=== PATIENT | female | born 1965 | race Caucasian/White ===

== ENCOUNTER 2016-11-08 09:59 | Emergency (ER) | payer MEDICAID ==
[~2016-11-08] VITALS: Ht 162.6 cm; Wt 52.0 kg
[~2016-11-08 09:59] MED LIST: ALBEPOW6 XX; DOLU1TAB4 PO; DULO20 PO; GABA600T OR; HYDR-3533 PO; NAPR500T PO; PERM5CRE4 TOP; RISP3TAB23 PO; STRO3TAB PO
[2016-11-08 10:03] VITALS: BP 155/86; PULSE 82; RESP 24; TEMP 97.8; O2SAT 94
[2016-11-08] MEDS ORDERED: LISI10TA3 PO (10:24)
[2016-11-08] MEDS ORDERED: HYDR-3533 PO (10:24)
[2016-11-08] MEDS ORDERED: LURA20TA PO (10:24)
[2016-11-08] MEDS ORDERED: TRAZ100T4 PO (10:24)
[2016-11-08] MEDS ORDERED: TRAM50TA PO (10:24)
[2016-11-08 10:58] VITALS: O2SAT 98
[2016-11-08] MEDS ORDERED: SODIUM CHLORIDE 0.9% FLUSH 5 ML FLUSH IVF PRN (11:00)
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
[2016-11-08 11:13] LABS: AUTOMATED NEUTROPHIL # 2.2 TH/MM3 (1.8-7.7); BASOPHIL % 0.5 % (0.0-2.0); EOSINOPHIL # 0.1 TH/MM3 (0-0.4); EOSINOPHIL % 2.8 % (0.0-4.0); HEMATOCRIT 39.4 % (35.0-46.0); HEMO FLAGS DIFF FINAL; LYMPH % 34.7 % (9.0-44.0); LYMPHOCYTE # 1.4 TH/MM3 (1.0-4.8); MEAN CELL VOLUME 95.6 FL (80.0-100.0); MEAN CORPUSCULAR HEMOGLOBIN 31.5 PG (27.0-34.0); MONO % 8.6 % (0.0-8.0); NEUT % 53.4 % (16.0-70.0); PLATELET COUNT 118 TH/MM3 (150-450); RED BLOOD COUNT 4.12 MIL/MM3 (4.00-5.30); RED CELL DISTRIBUTION WIDTH 16.1 % (11.6-17.2); WHITE BLOOD COUNT 4.2 TH/MM3 (4.0-11.0)
[2016-11-08 11:23] LABS: ALT (GPT) 89 U/L (10-53); ANION GAP 8 MEQ/L (5-15); AST (GOT) 75 U/L (15-37); BICARBONATE 27.2 MEQ/L (21.0-32.0); BLOOD UREA NITROGEN 24 MG/DL (7-18); CHLORIDE 105 MEQ/L (98-107); GLOMERULAR FILTRATION RATE 66 ML/MIN (>89); POTASSIUM 3.9 MEQ/L (3.5-5.1); SODIUM (NA) 140 MEQ/L (136-145)
[2016-11-08 11:26] LABS: ALKALINE PHOSPHATASE 88 U/L (45-117); TOTAL BILIRUBIN ADULT 0.3 MG/DL (0.2-1.0)
--- NOTE | 2016-11-08 12:12 | RADRPT ---
EXAM DATE/TIME: 11/08/2016 11:14 [facility] COMPARISON: CHEST SINGLE AP, September 18, 2016, 20:05. INDICATIONS : Shortness of breath, anxiety, head pain, and neck pain. MEDICAL HISTORY : None. SURGICAL HISTORY : None. ENCOUNTER: Initial ACUITY: 1 month PAIN SCORE: 5/10 LOCATION: neck FINDINGS: Portable AP view of the chest demonstrates a normal-sized cardiac silhouette. No effusion, consolidat ion, or pneumothorax is visualized. The bones and soft tissues demonstrate no acute abnormality. CONCLUSION: No acute cardiopulmonary abnormality is identified. Kam Ko MD on November 08, 2016 at 12:10 Board Certified Radiologist. This report was verified electronically.
--- NOTE | 2016-11-08 12:30 | RADRPT ---
EXAM DATE/TIME: 11/08/2016 11:52 [facility] COMPARISON: CT BRAIN W/O CONTRAST, September 18, 2016, 19:14. INDICATIONS : Syncopal episode with fall. RADIATION DOSE: 49.08 CTDIvol (mGy) MEDICAL HISTORY : Hypertension. Chronic obstructive pulmonary disease. Cardiovascular diseaseHIV, Hepatits C, breast ca ncer. SURGICAL HISTORY : None. ENCOUNTER: Initial ACUITY: 1 day PAIN SCALE: 3/10 LOCATION: cranial TECHNIQUE: Multiple contiguous axial images were obtained of the head. Using automated exposure control and adj ustment of the mA and/or kV according to patient size, radiation dose was kept as low as reasonably a chievable to obtain optimal diagnostic quality images. FINDINGS: CEREBRUM: The ventricles are normal for age. No evidence of midline shift, mass lesion, hemorrhage or acute in farction. No extra-axial fluid collections are seen. POSTERIOR FOSSA: The cerebellum and brainstem are intact. The 4th ventricle is midline. The cerebellopontine angle i s unremarkable. EXTRACRANIAL: The visualized portion of the orbits is intact. SKULL: The calvaria is intact. No evidence of skull fracture. CONCLUSION: No acute intracranial abnormality is identified. Kam Ko MD on November 08, 2016 at 12:27 Board Certified Radiologist. This report was verified electronically.
--- NOTE | 2016-11-08 13:01 | RADRPT ---
EXAM DATE/TIME: 11/08/2016 11:52 [facility] COMPARISON: CT CERVICAL SPINE W/O CONTRAST, September 18, 2016, 19:14. INDICATIONS : Syncopal episode with fall, numbness and tingling in extremities bilaterally. RADIATION DOSE: 38.24 CTDIvol (mGy) MEDICAL HISTORY : Carcinoma, breast. Cardiovascular disease Chronic obstructive pulmonary disease. Hypertension, HIV, H epatitis. SURGICAL HISTORY : None. ENCOUNTER: Initial ACUITY: 1 day PAIN SCALE: 4/10 LOCATION: neck TECHNIQUE: Volumetric scanning of the cervical spine was performed. Multiplanar reconstructions in the sagittal, coronal and oblique axial planes were performed. Using automated exposure control and adjustment o f the mA and/or kV according to patient size, radiation dose was kept as low as reasonably achievable to obtain optimal diagnostic quality images. FINDINGS: VERTEBRAE: Normal vertebral body height. No fracture is visualized. ALIGNMENT: No anterolisthesis or retrolisthesis. Craniocervical junction and C1-C2 level demonstrate no abnormality. C2-C3: No disc herniation, canal stenosis, or neural foraminal stenosis. C3-C4: No disc herniation, canal stenosis, or neural foraminal stenosis. C4-C5: No disc herniation, canal stenosis, or neural foraminal stenosis. C5-C6: There is mild right facet arthrosis. Otherwise, no disc herniation, canal stenosis, or neural foramin al stenosis. C6-C7: No disc herniation, canal stenosis, or neural foraminal stenosis. C7-T1: There is mild facet arthrosis. No disc herniation, canal stenosis, or neural foraminal stenosis is pr esent. Visualized paraspinous structures demonstrate no acute finding. CONCLUSION: No acute cervical spine abnormality is identified and no significant degenerative changes are visuali zed. Kam Ko MD on November 08, 2016 at 12:55 Board Certified Radiologist. This report was verified electronically.
--- NOTE | 2016-11-10 21:40 | EKG ---
Date Performed: 11/08/2016 Time Performed: 12:00:57 PTAGE: 51 years EKG: Sinus rhythm NORMAL ECG PREVIOUS TRACING : 10/31/2015 07.04 Compared to prior tracing no significant change DOCTOR: Aden Montanez Interpretating Date/Time 11/10/2016 21:40:10
[2017-02-26] MEDS ORDERED: LURA80 PO (08:43)
[2017-02-26] MEDS ORDERED: BUSP15TA PO (08:43)
[2017-02-26] MEDS ORDERED: GABA800T PO (08:45)
[2017-02-26] MEDS ORDERED: ABAC1TAB3 PO (08:45)
[2017-03-30] MEDS ORDERED: TRAZ100T6 PO (08:16)
== END 2016-11-08 14:06 | disposition home or self-care (01) ==
LOC: NEPE 09:59
DX: R53.1 Weakness (principal); R55 Syncope and collapse; I10 Essential (primary) hypertension; F17.210 Nicotine dependence, cigarettes, uncomplicated; Z88.0 Allergy status to penicillin
CPT/HCPCS: 70450; 71010; 72125; 80053; 85025; 93005

== ENCOUNTER 2017-05-14 10:08 | Emergency (ER) | payer MEDICAID ==
[~2017-05-14] VITALS: Ht 162.6 cm; Wt 51.5 kg
[~2017-05-14 10:08] MED LIST changes: +ABAC1TAB3 PO; -ALBEPOW6 XX; +BUSP15TA PO; -DOLU1TAB4 PO; -DULO20 PO; -GABA600T OR; +GABA800T PO; -HYDR-3533 PO; +LISI10TA3 PO; +LURA80 PO; -NAPR500T PO; -PERM5CRE4 TOP; -RISP3TAB23 PO; -STRO3TAB PO; +TRAM50TA PO; +TRAZ100T6 PO
[2017-05-14 10:10] VITALS: BP 122/79; PULSE 86; RESP 18; TEMP 98.8; O2SAT 96
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
[2017-05-14] MEDS ORDERED: TETANUS/DIPHTHERIA TOXOID ADULT 0.5 ML VIAL IM ONE (10:30)
[2017-05-14] MEDS ORDERED: CLIN1CAP5 PO (10:57)
[2017-05-14] MEDS ORDERED: DOXY100T PO (10:57)
[2017-05-14] MEDS ORDERED: IBUP800T23 PO (10:57)
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
[2017-05-21] MEDS ORDERED: ALBE200T PO (19:08)
== END 2017-05-14 12:33 | disposition home or self-care (01) ==
LOC: NEPK 10:08
DX: S69.91XA Unspecified injury of right wrist, hand and finger(s), initial encounter (principal); S61.451A Open bite of right hand, initial encounter; A49.01 Methicillin susceptible Staphylococcus aureus infection, unspecified site; D64.9 Anemia, unspecified; I10 Essential (primary) hypertension; Z21 Asymptomatic human immunodeficiency virus [HIV] infection status; F17.200 Nicotine dependence, unspecified, uncomplicated; W22.8XXA Striking against or struck by other objects, initial encounter; Z23 Encounter for immunization
CPT/HCPCS: 73130; 86403; 87070; 87186; 87205; 90471; 90714

== ENCOUNTER → 2017-11-15 | Emergency (ER) | payer MEDICAID ==
[~2017-11-15] VITALS: Ht 162.6 cm; Wt 55.0 kg
[~2017-11-15] MED LIST changes: +ALBE200T PO; +IBUP1TAB7 PO; +IVER5TAB PO; +PERM5CRE TOPICAL; -TRAM50TA PO; +TRAZ100T10 PO; -TRAZ100T6 PO
[2017-11-15 21:51] VITALS: BP 186/109; PULSE 93; RESP 14; TEMP 97.9; O2SAT 97
--- NOTE | 2017-11-16 00:03 | PD ---
HPI Chief Complaint: Skin Problem Time Seen by Provider: 23:51 Travel History International Travel<30 days: No Contact w/Intl Traveler<30days: No Traveled to known affect area: No History of Present Illness HPI 52-year-old white female presents to emergency department requesting treatment of possible scabies. She states that she has had this skin rash which she feels is scabies for 6 years. She has been seen by her primary care Dr. multiple occasions, her psychologist, rf technician and ERs. She just was treated twice with pyrethrin for possible scabies this week. She states that she also has had multiple antibiotics. She claims that she has mites in her skin and she continues to pick and scratch. She states the skin is very pruritic. She denies any fever or chills. No recent illness otherwise. History Past Medical Histgory Narrative Medical Hepatitis C, HIV, hypertension Tetanus Vaccination: < 5 Years Hx Cancer: Yes (breast) Social History Alcohol Use: Yes (OCC) Tobacco Use: Yes (5-6 CIGS DAILY) Allergies-Medications (Allergen,Severity, Reaction): Coded Allergies: penicillin G (Verified Allergy, Intermediate, nauseated with a certain PCN unsure which one, 11/15/17) Reported Meds & Prescriptions Reported Meds & Active Scripts Active Permethrin Topical 5% (Permethrin) 5% Cream 1 Applic TOPICAL ONCE Lisinopril 10 Mg Tab 10 Mg PO DAILY Albenza (Albendazole) 200 Mg Tab 400 Mg PO DAILY Ibuprofen 800 Mg Tab 800 Mg PO Q6HR PRN Reported Trazodone (Trazodone HCl) 100 Mg Tablet 100 Mg PO HS Gabapentin 800 Mg Tab 800 Mg PO TID Triumeq (Srqiozpu-Dfomdnforgat-Jzghastubh) 600-50-300 Mg Tab 1 Tab PO DAILY Hazardous agent; use appropriate precautions for handling & disposal. Buspirone (Buspirone HCl) 15 Mg Tab 15 Mg PO TID Latuda (Lurasidone) 80 Mg Tab 80 Mg PO DAILY Review of Systems General / Constitutional: No: Fever Eyes: No: Visual changes HENT: No: Headaches Cardiovascular: No: Chest Pain or Discomfort Respiratory: No: Shortness of Breath Gastrointestinal: No: Abdominal Pain Genitourinary: No: Dysuria Musculoskeletal: No: Pain Skin: Positive Rash, Positive Itching, Positive Lesions Neurologic: No: Weakness Psychiatric: No: Depression Endocrine: No: Polydipsia Hematologic/Lymphatic: No: Easy Bruising Physical Exam Narrative GENERAL: Well-developed, well-nourished in no acute distress. Nontoxic appearing. HEAD: Normocephalic, atraumatic. EYES: Pupils equal round and reactive. Extraocular motions intact. No scleral icterus. No injection or drainage. ENT: TMs clear without erythema. The external auditory canals clear. Nose: clear . Posterior pharynx is pink and moist. No tonsillar edema or exudate. Uvula midline. Airway patent. NECK: Trachea midline.Supple, nontender, moves head freely. No central bony tenderness or spasm. CARDIOVASCULAR: Regular rate and rhythm without murmurs, gallops, or rubs. RESPIRATORY: Clear to auscultation. Breath sounds equal bilaterally. No wheezes , rales, or rhonchi. GASTROINTESTINAL: Abdomen soft, non-tender, nondistended. No hepato-splenomegaly , or palpable masses. No guarding. EXTREMITIES: No clubbing, cyanosis, or edema. No joint tenderness, effusion, or edema noted. BACK: Nontender without deformity or crepitance. No flank tenderness. Skin: Patient has multiple skull radiation which appear to be self-inflicted on her extremities and trunk. I see no evidence of any mites or skin infections. This is consistent with formication Data Data Last Documented VS Vital Signs Date Time Temp Pulse Resp B/P (MAP) Pulse Ox O2 Delivery O2 Flow Rate FiO2 11/15/17 21:51 97.9 93 14 186/109 (134) 97 Room Air MDM Medical Screen Exam Complete: Yes Emergency Medical Condition: No Differential Diagnosis MDM: High Differential diagnoses: Abscess, folliculitis, cellulitis, lymphangitis, abrasion, contact dermatitis, formication, scabies Narrative Course A medical screening exam was performed: At the time of evaluation the presenting medical condition was determined not to be of an emergent nature. The patient was given the option of receiving additional care, but declined. Patient was given options for additional community resources from which to obtain care. The Patient Has Been advised to seek medical attention for their presenting complaint. The patient has been advised to return to the ER at any time if an emergent condition develops. Primary Impression: Encounter for medical screening examination Condition: Michael Sparrow Nov 16, 2017 00:03
== END | disposition left against medical advice (07) ==
LOC: NEPD 21:50
DX: R21 Rash and other nonspecific skin eruption (principal); B20 Human immunodeficiency virus [HIV] disease; I10 Essential (primary) hypertension; B19.20 Unspecified viral hepatitis C without hepatic coma; F17.210 Nicotine dependence, cigarettes, uncomplicated; Z88.0 Allergy status to penicillin; Z79.899 Other long term (current) drug therapy
CPT/HCPCS: 99281

== ENCOUNTER 2018-03-08 11:56 | Emergency (ER) | payer MEDICAID ==
[~2018-03-08] VITALS: Ht 162.6 cm; Wt 48.0 kg
[~2018-03-08 11:56] MED LIST changes: -ALBE200T PO; -IBUP1TAB7 PO; -PERM5CRE TOPICAL
[2018-03-08 12:38] VITALS: BP 151/93; PULSE 89; RESP 18; TEMP 97.4; O2SAT 98
--- NOTE | 2018-03-08 13:56 | PD ---
HPI Chief Complaint: Skin Problem Time Seen by Provider: 13:37 Travel History International Travel<30 days: No Contact w/Intl Traveler<30days: No Traveled to known affect area: No History of Present Illness HPI 52-year-old female presents to the ED for evaluation of "6 year" history of rash. Patient states that there are scabies under her skin for this period of time. She states that she can pick the bodies out of her skin. States that she sees worms in her eyes. She states that she has been seen by multiple providers , including dermatology but this rash persists. She denies fever, chills, nausea, vomiting. She states that she treated with ivermectin "couple months ago." She states that she did have improvement of her symptoms with that treatment. Patient denies IV drug use. 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, SHORT TERM MEMORY LOSS) Psychiatric: Yes Reproductive: No Respiratory: No Thyroid Disease: No : 8 Para: 1 Miscarriage: 0 : 7 Past Surgical History Abdominal Surgery: No AICD: No Body Medical Devices: LOWER PARTIAL Cardiac Surgery: No Ear Surgery: No Endocrine Surgery: No Eye Surgery: Yes (EYELID SX, CA REMOVED LEFT FOREHEAD &BACK) Genitourinary Surgery: No Gynecologic Surgery: No Joint Replacement: No Oral Surgery: Yes (DENTAL EXTRACT) Pacemaker: No Thoracic Surgery: No Other Surgery: Yes Social History Alcohol Use: Yes (OCC) Tobacco Use: Yes (5-6 CIGS DAILY) Substance Use: Yes (MARIJUANA) Allergies-Medications (Allergen,Severity, Reaction): Coded Allergies: penicillin G (Verified Allergy, Intermediate, nauseated with a certain PCN unsure which one, 03/08/18) Reported Meds & Prescriptions Reported Meds & Active Scripts Active Elimite Topical (Permethrin) 5% Cream 1 Applic TOPICAL ONCE Apply to the entire skin surface. Wash off after 8-14 hours. Repeat the application in 1 week. Lisinopril 10 Mg Tab 10 Mg PO DAILY Reported Trazodone (Trazodone HCl) 100 Mg Tablet 100 Mg PO HS Gabapentin 800 Mg Tab 800 Mg PO TID Triumeq (Djhjhejv-Yobkqmnnrwsb-Dzhwurledw) 600-50-300 Mg Tab 1 Tab PO DAILY Hazardous agent; use appropriate precautions for handling & disposal. Buspirone (Buspirone HCl) 15 Mg Tab 15 Mg PO TID Latuda (Lurasidone) 80 Mg Tab 80 Mg PO DAILY Review of Systems Except as stated in HPI: all other systems reviewed are Neg Physical Exam Narrative GENERAL: Well-nourished, well-developed white female no acute distress. SKIN: Focused skin assessment warm/dry. Several small crusts, excoriations and bleeding wounds of the extremities, consistent with picking. No rash on the back of the neck, in the axillary regions, wrists, waistline. HEAD: Normocephalic. EYES: No scleral icterus. No injection or drainage. NECK: Supple, trachea midline. No JVD or lymphadenopathy. CARDIOVASCULAR: Regular rate and rhythm without murmurs, gallops, or rubs. RESPIRATORY: Breath sounds equal bilaterally. No accessory muscle use. GASTROINTESTINAL: Abdomen soft, non-tender, nondistended. MUSCULOSKELETAL: No cyanosis, or edema. BACK: Nontender without obvious deformity. No CVA tenderness. Data Data Last Documented VS Vital Signs Date Time Temp Pulse Resp B/P (MAP) Pulse Ox O2 Delivery O2 Flow Rate FiO2 03/08/18 12:38 97.4 89 18 151/93 (112) 98 Orders Orders Ed Discharge Order (03/08/18 14:00) [facility] Medical Decision Making Medical Screen Exam Complete: Yes Emergency Medical Condition: Yes Differential Diagnosis Delusional infestation versus parasitosis versus picking versus other Narrative Course 52-year-old female presents to the ED for evaluation of "6 year" history of rash. Patient states that there are scabies under her skin for this period of time. She states that she can pick the bodies out of her skin. States that she sees worms in her eyes. She states that she has been seen by multiple providers , including dermatology but this rash persists. She states that her primary care provider referred her to psychiatry but "I am not crazy and I am not going. " Vitals reviewed. On physical exam the patient is very agitated, raising her voice throughout the course of evaluation. Physical exam reveals several excoriations, small open bleeding wounds but is definitely not consistent with scabies. I tried repeatedly to express this to the patient but she becomes more agitated and raising her voice. I offered her topical Elimite. Patient demands ivermectin in pill form. I informed the patient that I was unwilling to provide this medication. Patient states that she does not want to the topical medication and is "taking this to the head of the hospital." I believe the patient's rash is of psychiatric origin. She is stable and discharged home. Diagnosis Primary Impression: Rash and nonspecific skin eruption Referrals: [facility] Additional Instructions: Follow with a portainer operator. Return to ED for any urgent or emergent medical condition. Med/Other Pt SpecificInfo: Prescription(s) given Scripts Permethrin Topical (Elimite Topical) 5% Cream 1 APPLIC TOPICAL ONCE for Scabies, #2 TUBE 0 Refills Apply to the entire skin surface. Wash off after 8-14 hours. Repeat the application in 1 week. Prov: Xin Chance MD 03/08/18 Disposition: 01 DISCHARGE HOME Condition: Stable Virginie Landry March 08, 2018 13:56
[2018-03-08] MEDS ORDERED: PERM5CRE11 TOPICAL (14:00)
== END 2018-03-08 14:27 | disposition home or self-care (01) ==
LOC: NEPK 11:56
DX: R21 Rash and other nonspecific skin eruption (principal); F12.90 Cannabis use, unspecified, uncomplicated; F17.210 Nicotine dependence, cigarettes, uncomplicated; I10 Essential (primary) hypertension
CPT/HCPCS: 99283

== ENCOUNTER 2018-10-08 11:03 | Inpatient (IN) ==
[2018-10-08] MEDS ORDERED: Sod Chloride 0.9% Inj 1,000 ML IV.SIG ONE (11:35)
--- NOTE | 2018-10-08 11:42 | ED ---
HPI General Chief Complaint: Overdose Stated Complaint: Psych Eval/OBPD Time Seen by Provider: 10/08/18 11:29 Source: patient, RN notes reviewed and old records reviewed Mode of arrival: EMS Limitations: no limitations History of Present Illness HPI Narrative: 53-year-old female presents to the emergency department under [place] act by local police for suicidal ideation. Patient states she overdosed around 10 AM on unknown amount of trazodone. She states she did this because she wanted to hurt herself. She states that she is now homeless and her has all her money. She states that she sent him a message stating that he 1 and he is the one who called the police. Patient states she feels drowsy. She denies taking any other medications or harming herself in any other way. Moderate severity. MD complaint: Reports intentional overdose Onset (ago): hour(s) (1.5) Intent: suicide attempt How Overdose Was Discovered: called family/friend Context: Intentional Overdose: relationship problems and financial issues Associated symptoms: depression, paranoia (thinks police are stealing parts from her vehicle) and lethargy Related Data Home Medications Medication Instructions Recorded Confirmed wslhulji-zmykmijnhwwn-raawhju 1 tab PO DAILY 08/28/18 10/08/18 [Triumeq] doxycycline hyclate 20 mg PO BID 08/28/18 08/28/18 gabapentin 800 mg PO BID 08/28/18 10/08/18 lurasidone [Latuda] 80 mg PO DAILY 08/28/18 10/08/18 trazodone 200 mg PO DAILY 08/28/18 10/08/18 Allergies Allergy/AdvReac Type Severity Reaction Status Date / Time penicillin G Allergy Intermediate nauseated Verified 10/08/18 11:32 with a certain PCN unsure which one Review of Systems ROS: all other systems reviewed are negative [facility] Medical History Medical History Depression (Acute) HTN (hypertension) (Acute) AIDS (Acute) Hep C w/o coma, chronic (Acute) Skin cancer (Acute) Social History Social History Substance History: Active Abuse Second Hand Smoke Exposure: Yes Smoking Status: Current every day smoker Tobacco Type: Cigarettes How Often Do You Have a Drink Containing Alcohol: 2 to 3 times a week Recent Travel in [place] within the Last 8 Weeks: No Recent Out of Country Travel within the Last 8 Weeks: No Substance Abuse Detail Marijuana: Substance Use Status: Active Route Used Substance Abuse: Inhalation Immunization History Tetanus Immunization: >5 Years Exam Narrative Exam Narrative: GENERAL: Well-nourished, well-developed female patient, afebrile SKIN: Focused skin assessment warm/dry. HEAD: Normocephalic. Atraumatic EYES: No scleral icterus. No injection or drainage. NECK: Supple, trachea midline. No JVD or lymphadenopathy. CARDIOVASCULAR: Regular rate and rhythm without murmurs, gallops, or rubs. RESPIRATORY: Breath sounds equal bilaterally. No accessory muscle use. Lung sounds are clear to auscultation GASTROINTESTINAL: Abdomen soft, non-tender, nondistended. MUSCULOSKELETAL: No cyanosis, or edema. BACK: Nontender without obvious deformity. No CVA tenderness. PSYCHIATRIC: No delusional thought processes. No hallucinations. Course Initial Documented Vital Signs Pulse Rate 87 10/08/18 11:23 Respiratory Rate 20 10/08/18 11:23 Blood Pressure 193/97 H 10/08/18 11:23 Pulse Oximetry 97 10/08/18 11:23 Last Documented Vital Signs Temperature 98.0 F 10/08/18 17:00 Pulse Rate 84 10/08/18 19:15 Respiratory Rate 16 10/08/18 19:15 Blood Pressure 143/68 H 10/08/18 19:15 Pulse Oximetry 96 10/08/18 19:15 Medical Decision Making [facility] Narrative Medical decision making narrative: 53-year-old female presents to the emergency department for evaluation after intentional trazodone overdose. Poison control was notified by RN. CBC shows no acute abnormality. CMP shows elevated AST 204 , ALT 257, alkaline phosphatase 173, hyperglycemia 122. PTT is 25.0. PT is 11.6. INR is 1.1. Urine drug screen is positive for amphetamines and cannabinoids. Salicylate level is less than 1.7. Acetaminophen level is less than 2.0. Alcohol level is less than 3. UA is negative for acute infection. First EKG shows sinus rhythm, heart rate 74, no acute ST changes. Per poison control, the second EKG was done at 1400 which shows sinus rhythm, prolonged QT interval. Per poison control, a third EKG was done at 1646 which shows sinus rhythm, no longer prolonged QT interval.. Patient remains asymptomatic after being monitored for 7 hours. Patient is medically cleared for psychiatric evaluation. Medical Screen Exam Complete: Yes Emergency Medical Condition: Yes Differential Diagnosis Differential Diagnosis: Suicide ideation versus depression versus overdose Medical Records Medical records reviewed: Yes I reviewed the patient's medical records. Lab Data Result diagrams: 10/08/18 12:00 10/08/18 12:00 Lab Results 10/08/18 10/08/18 10/08/18 Range/Units 12:00 12:00 12:00 WBC 3.7 L (4.0-11.0) th/mm3 RBC 3.95 L (4.00-5.30) mil/mm3 Hgb 12.3 (11.6-15.3) gm/dL Hct 36.8 (35.0-46.0) % MCV 93.3 (80.0-100.0) fL MCH 31.3 (27.0-34.0) pg MCHC 33.5 (32.0-36.0) % RDW 17.4 H (11.6-17.2) % Plt Count 215 (150-450) th/mm3 MPV 8.7 (7.0-11.0) fL Neut % (Auto) 58.5 (16.0-70.0) % Lymph % (Auto) 26.8 (9.0-44.0) % [place] % (Auto) 12.0 H (0.0-8.0) % Eos % (Auto) 1.6 (0.0-4.0) % Baso % (Auto) 1.1 (0.0-2.0) % Neut # (Auto) 2.2 (1.8-7.7) th/mm3 Lymph # (Auto) 1.0 (1.0-4.8) th/mm3 [place] # (Auto) 0.4 (0.0-0.9) th/mm3 Eos # (Auto) 0.1 (0.0-0.4) th/mm3 Baso # (Auto) 0.0 (0.0-0.2) th/mm3 WBC Differential . Differential Comment Auto diff final PT 11.6 (9.8-11.6) sec INR 1.1 Ratio APTT 25.0 (23.4-31.7) sec Sodium 141 (136-145) meq/L Potassium 3.5 (3.5-5.1) meq/L Chloride 108 H (98-107) meq/L Carbon Dioxide 26.8 (21.0-32.0) meq/L Anion Gap 6 (5-15) meq/L BUN 17 (7-18) mg/dL Creatinine 0.66 (0.50-1.00) mg/dL Estimated GFR Greater than 89 (>89) mL/min Random Glucose 122 H (74-106) mg/dL Calcium 7.9 L (8.5-10.1) mg/dL Magnesium 1.7 (1.5-2.5) mg/dL Total Bilirubin 0.3 (0.2-1.0) mg/dL AST 204 H (15-37) U/L ALT 257 H (10-53) U/L Alkaline Phosphatase 173 H (45-117) U/L Total Protein 6.8 (6.4-8.2) g/dL Albumin 3.3 L (3.4-5.0) g/dL Urine Color (Yellw/Straw) Urine Clarity (Clear) Urine pH (5.0-8.5) Ur Specific [place] (1.002-1.035) Urine Protein (Neg-Trace) mg/dL Urine Glucose (UA) (Negative) mg/dL Urine Ketones (Negative) mg/dL Urine Occult Blood (Negative) Urine Nitrate (Negative) Urine Bilirubin (Negative) Urine Urobilinogen (Less than 2) mg/dL Ur Leukocyte Esterase (Negative) Urine RBC (0-3) /hpf Urine WBC (0-5) /hpf Ur Squamous Epith Cells (0-5) /hpf Urine Bacteria (None) /hpf Urine Mucus (Occasional) /lpf Micro UA Comment Ur Microscopic Review Urine Culture Comments Salicylates (2.8-20.0) mg/dL Urine Opiates Screen (Neg) Acetaminophen Less than 2.0 L (10.0-30.0) mcg/mL Ur Barbiturates Screen (Neg) Ur Amphetamines Screen (Neg) U Benzodiazepines Scrn (Neg) Urine Cocaine Screen (Neg) U Cannabinoids Screen (Neg) Serum Alcohol Less than 3 (0-5) mg/dL 10/08/18 10/08/18 10/08/18 Range/Units 12:00 12:00 12:00 WBC (4.0-11.0) th/mm3 RBC (4.00-5.30) mil/mm3 Hgb (11.6-15.3) gm/dL Hct (35.0-46.0) % MCV (80.0-100.0) fL MCH (27.0-34.0) pg MCHC (32.0-36.0) % RDW (11.6-17.2) % Plt Count (150-450) th/mm3 MPV (7.0-11.0) fL Neut % (Auto) (16.0-70.0) % Lymph % (Auto) (9.0-44.0) % [place] % (Auto) (0.0-8.0) % Eos % (Auto) (0.0-4.0) % Baso % (Auto) (0.0-2.0) % Neut # (Auto) (1.8-7.7) th/mm3 Lymph # (Auto) (1.0-4.8) th/mm3 [place] # (Auto) (0.0-0.9) th/mm3 Eos # (Auto) (0.0-0.4) th/mm3 Baso # (Auto) (0.0-0.2) th/mm3 WBC Differential Differential Comment PT (9.8-11.6) sec INR Ratio APTT (23.4-31.7) sec Sodium (136-145) meq/L Potassium (3.5-5.1) meq/L Chloride (98-107) meq/L Carbon Dioxide (21.0-32.0) meq/L Anion Gap (5-15) meq/L BUN (7-18) mg/dL Creatinine (0.50-1.00) mg/dL Estimated GFR (>89) mL/min Random Glucose (74-106) mg/dL Calcium (8.5-10.1) mg/dL Magnesium (1.5-2.5) mg/dL Total Bilirubin (0.2-1.0) mg/dL AST (15-37) U/L ALT (10-53) U/L Alkaline Phosphatase (45-117) U/L Total Protein (6.4-8.2) g/dL Albumin (3.4-5.0) g/dL Urine Color Yellow (Yellw/Straw) Urine Clarity Clear (Clear) Urine pH 5.0 (5.0-8.5) Ur Specific [place] 1.017 (1.002-1.035) Urine Protein Negative (Neg-Trace) mg/dL Urine Glucose (UA) Negative (Negative) mg/dL Urine Ketones Negative (Negative) mg/dL Urine Occult Blood Negative (Negative) Urine Nitrate Negative (Negative) Urine Bilirubin Negative (Negative) Urine Urobilinogen Less than 2 (Less than 2) mg/dL Ur Leukocyte Esterase Negative (Negative) Urine RBC Less than 1 (0-3) /hpf Urine WBC 1 (0-5) /hpf Ur Squamous Epith Cells <1 (0-5) /hpf Urine Bacteria Rare H (None) /hpf Urine Mucus Few H (Occasional) /lpf Micro UA Comment Culture not ind Ur Microscopic Review Not Reportable Urine Culture Comments Culture not ind Salicylates Less than 1.7 L (2.8-20.0) mg/dL Urine Opiates Screen Neg (Neg) Acetaminophen (10.0-30.0) mcg/mL Ur Barbiturates Screen Neg (Neg) Ur Amphetamines Screen Pos H (Neg) U Benzodiazepines Scrn Neg (Neg) Urine Cocaine Screen Neg (Neg) U Cannabinoids Screen Pos H (Neg) Serum Alcohol (0-5) mg/dL Discharge Plan Discharge Disposition Patient Disposition: Sign Out(ED Internal Use Only) Discharge Details Diagnosis: Drug overdose, Depression with suicidal ideation Physicians Team ED Provider: Charlie Segura ED Midlevel Provider: Sophia Vail Primary Care Provider: UNKNOWN, Rxs /Orders / Referrals /Forms Prescriptions: No Action gabapentin 800 mg Tablet 800 mg PO BID RF: 0 trazodone 100 mg Tablet 200 mg PO DAILY RF: 0 lurasidone [Latuda] 80 mg Tablet 80 mg PO DAILY RF: 0 cgdnybyo-pdkjtsnagvft-rzfhcog [Triumeq] 600-50-300 mg Tablet 1 tab PO DAILY RF: 0 doxycycline hyclate 20 mg Tablet 20 mg PO BID RF: 0 Discharge Interventions Interventions: Vital Signs Last Done: 10/08/18 19:15 Status ED Status: Medically Cleared
[2018-10-08 12:38] LABS: Baso % (Auto) 1.1 % (0.0-2.0); Eos # (Auto) 0.1 th/mm3 (0.0-0.4); Eos % (Auto) 1.6 % (0.0-4.0); Hematocrit 36.8 % (35.0-46.0); Hemoglobin 12.3 gm/dL (11.6-15.3); Lymph % (Auto) 26.8 % (9.0-44.0); Mean Corpuscular HGB Conc 33.5 % (32.0-36.0); Mean Corpuscular Hemoglobin 31.3 pg (27.0-34.0); Mean Corpuscular Volume 93.3 fL (80.0-100.0); Mean Platelet Volume 8.7 fL (7.0-11.0); Mono # (Auto) 0.4 th/mm3 (0.0-0.9); Neut # (Auto) 2.2 th/mm3 (1.8-7.7); Neut % (Auto) 58.5 % (16.0-70.0); Platelet Count 215 th/mm3 (150-450); Red Blood Count 3.95 mil/mm3 (4.00-5.30); Red Cell Distribution Width 17.4 % (11.6-17.2); White Blood Count 3.7 th/mm3 (4.0-11.0)
[2018-10-08 12:45] LABS: Amphetamine Screen,Urine Pos (Neg); Barbiturate Screen,Urine Neg (Neg); Cannabinoid Screen,Urine Pos (Neg); Cocaine Screen,Urine Neg (Neg)
[2018-10-08 12:48] LABS: INR 1.1 Ratio; Prothrombin Time 11.6 sec (9.8-11.6)
[2018-10-08 12:53] LABS: Opiate Screen,Urine Neg (Neg)
[2018-10-08 13:02] LABS: Alanine Aminotransferase 257 U/L (10-53); Albumin 3.3 g/dL (3.4-5.0); Anion Gap 6 meq/L (5-15); Aspartate Aminotransferase 204 U/L (15-37); Bacteria,Urine Rare /hpf; Bilirubin,Urine Negative (Negative); Blood Urea Nitrogen 17 mg/dL (7-18); Calcium 7.9 mg/dL (8.5-10.1); Carbon Dioxide 26.8 meq/L (21.0-32.0); Chloride 108 meq/L (98-107); Clarity,Urine Clear (Clear); Color,Urine Yellow (Yellw/Straw); Glomerular Filtration Rate Greater Than 89 mL/min (>89); Glucose,Random 122 mg/dL (74-106); Glucose,Urine (UA) Negative (Negative); Leukocyte Esterase,Urine Negative (Negative); Magnesium 1.7 mg/dL (1.5-2.5); Mucus,Urine Few /lpf (Occasional); Nitrite,Urine Negative (Negative); Potassium 3.5 meq/L (3.5-5.1); Sodium 141 meq/L (136-145); Specific Gravity,Urine 1.017 (1.002-1.035); Squamous Epithelial Cell,Urine <1 /hpf (0-5)
[2018-10-08 13:03] LABS: Alkaline Phosphatase 173 U/L (45-117); Total Protein 6.8 g/dL (6.4-8.2)
--- NOTE | 2018-10-09 09:30 | ED ---
HPI - Psych - General Time Seen by Psych Provider: 09:05 Source: patient, RN notes reviewed, old records reviewed Mode of arrival: EMS Limitations: no limitations - History of Present Illness MD complaint: suicidal ideation Onset (ago): hour(s) Duration: constant History of same: No Relieving factors: none Exacerbating factors: drug use Context: recent drug abuse, not taking psychiatric medications Associated psychiatric symptoms: depression, delusions Treatments prior to arrival: placed on mental health hold If self harm: other (Denies at present) - General Chief Complaint: Overdose Stated Complaint: Psych Eval/OBPD Time Seen by Provider: 10/08/18 11:29 - History of Present Illness HPI Narrative: History of Present Illness HPI Narrative: Patient is a 53-year-old, , , female, on SSI, with reported history of paranoid schizophrenia, depression, delusional disorder , no previous psychiatric admissions, no previous suicide attempt, stopped taking her psychiatric medications 2 weeks ago, presents to the emergency department under Rom[place] act by local police alleging that she took several an unknown number of pills in an attempt to harm herself. On arrival to the ED she reported to ED provider that " she overdosed around 10 AM on unknown amount of trazodone. She states she did this because she wanted to hurt herself." She states that she is now homeless and her has all her money. EMR is reviewed. No previous contact with [facility] psychiatry. I do know that the patient has multiple visits to the ED for complaints of parasites coming out of her skin. Labs reviewed. CBC shows no acute abnormality. CMP shows elevated AST 204, ALT 257, alkaline phosphatase 173, hyperglycemia 122. Salicylate level is less than 1.7. Acetaminophen level is less than 2.0. Alcohol level is less than 3. Urine drug screen is positive for amphetamines and cannabinoids. UA is negative for acute infection. EKG #2 showed some prolongation of QT interval. Third EKG normal. Patient is seen. Asleep but arousable. Speech is clear and of normal rate and tone. Mood is irritable. Affect is variable and tearful at times. The patient admits to feeling depressed over her current situation of being from her and finding herself homeless. She states " I took the pills because I feel like I had nowhere to turn. I needed someone to listen to my story and no one is believing me. They are people that have been taking parts out of my car and switching them for junk parts since May. I have called the police numerous times and they will not do anything about it. My is involved in all of this as well. He has been trying to get me sick by giving me parasites and growing parasites in our house and a tank."The patient continues to endorse belief that people are intentionally doing things to harm her such as switching out her car parts. She also continues to endorse the believe that there are parasites coming out of her skin at times and that her is involved in all of the above-stated situations. She denies current suicidal or homicidal ideation, intent or plan. In terms of substance use she denies that she uses methamphetamine on a continuous basis but her states that she has been using such substances for the past year. Telephone call to her , [employer] at [phone] to obtain collateral information . He states that they have been x 1 year. Also reports that she has yana using methamphetamine x 1 year and since that time she has had the " crazy thoughts". According to him she was dx with " full blown Aids in 2007 but will not take medication". 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 - Medical History Medical History: Medical History (Last Reviewed 10/08/18 @ 18:20 by OBED Christy) Depression HTN (hypertension) AIDS Hep C w/o coma, chronic Skin cancer - Social History I have reviewed the patient's Social History: Yes - Tobacco History Second Hand Smoke Exposure: Yes Tobacco Use In Past 30 Days: Yes Smoking Status: Current every day smoker Tobacco Type: Cigarettes - Alcohol History How Often Do You Have a Drink Containing Alcohol: 2 to 3 times a week - Substance Use History Substance History: Active Abuse - Substance Use Type Marijuana Status: Active Route Used: Inhalation Amphetamines Status: Active - Travel History Recent Travel in the [place] Within the Last 8 Weeks: No Recent Travel Out of the Country Within the Last 8 Weeks: No - Immunization History Tetanus Immunization: >5 Years Psychiatric History - Psychiatric History Psychiatric Treatment History: History of Psychiatric Treatment, History of Community Mental Health Treatment History of Inpatient Treatment: No Firearms in Home: No - Psychiatric History Patient denies previous psychiatric hospitalization. Denies previous suicide attempt. She states she sees Paolo at [facility] and has been receiving treatment there for the past 6 years. Patient stopped taking her psychiatric medications approximately 2 weeks ago because she believed that her roommate stole them. ( Katelyn Hidalgo) - Legal History None reported (Katelyn Hidalgo) - Family Psychiatric History None reported (Katelyn Hidalgo) Physical Exam - General Limitations: no limitations Mental Status Examination Consciousness: Alert Orientation: x4 Motor Activity: Normal gait Speech: Unremarkable Language: Adequate Fund of Knowledge: Adequate Attention and Concentration: Adequate Memory: Unremarkable Mood: Sad, Irritable Affect: Appropriate Thought Process & Associations: Intact Thought Content: Bizarre thinking, Delusional Hallucination Type: None Delusion Type: Bizarre, Paranoid, Other (Parasitosis) Suicidal Ideation: No Suicidal Plan: No Suicidal Intention: No Homicidal Ideation: No Homicidal Plan: No Homicidal Intention: No Insight: Poor Judgment: Poor Initial Documented Vital Signs Pulse Rate 87 10/08/18 11:23 Respiratory Rate 20 10/08/18 11:23 Blood Pressure 193/97 H 10/08/18 11:23 Pulse Oximetry 97 10/08/18 11:23 Last Documented Vital Signs Temperature 97.8 F 10/09/18 09:29 Pulse Rate 81 10/09/18 09:29 Respiratory Rate 18 10/09/18 09:29 Blood Pressure 139/86 10/09/18 09:29 Pulse Oximetry 97 10/09/18 09:30 MDM - Psych - Diagnosis (1) Schizophrenia Code(s): F20.9 - Schizophrenia, unspecified Status: Acute (2) Delusional disorder Code(s): F22 - Delusional disorders Status: Acute (3) Amphetamine abuse Code(s): F15.10 - Other stimulant abuse, uncomplicated Status: Acute (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 She reports a history of previous psychiatric treatment and has stopped taking her psychiatric medications approximately 2 weeks ago. The patient continues to endorse paranoid thoughts that people are taking parts out of her car, that her is involved in such activity, that her friends are stealing her medication. She continues to endorse thoughts that parasites are coming out of her skin. Due to above noted complaints the patient impulsively took an overdose of trazodone. Patient also tested positive for amphetamines and cannabinoids. Patient will be admitted for further evaluation , for stabilization, for safety. I will also order a hospitalist consult for her multiple medical issues. (Katelyn Hidalgo) - Lab Data Lab Results 10/08/18 10/08/18 10/08/18 Range/Units 12:00 12:00 12:00 WBC 3.7 L (4.0-11.0) th/mm3 RBC 3.95 L (4.00-5.30) mil/mm3 Hgb 12.3 (11.6-15.3) gm/dL Hct 36.8 (35.0-46.0) % MCV 93.3 (80.0-100.0) fL MCH 31.3 (27.0-34.0) pg MCHC 33.5 (32.0-36.0) % RDW 17.4 H (11.6-17.2) % Plt Count 215 (150-450) th/mm3 MPV 8.7 (7.0-11.0) fL Neut % (Auto) 58.5 (16.0-70.0) % Lymph % (Auto) 26.8 (9.0-44.0) % [place] % (Auto) 12.0 H (0.0-8.0) % Eos % (Auto) 1.6 (0.0-4.0) % Baso % (Auto) 1.1 (0.0-2.0) % Neut # (Auto) 2.2 (1.8-7.7) th/mm3 Lymph # (Auto) 1.0 (1.0-4.8) th/mm3 [place] # (Auto) 0.4 (0.0-0.9) th/mm3 Eos # (Auto) 0.1 (0.0-0.4) th/mm3 Baso # (Auto) 0.0 (0.0-0.2) th/mm3 WBC Differential . Differential Comment Auto diff final PT 11.6 (9.8-11.6) sec INR 1.1 Ratio APTT 25.0 (23.4-31.7) sec Sodium 141 (136-145) meq/L Potassium 3.5 (3.5-5.1) meq/L Chloride 108 H (98-107) meq/L Carbon Dioxide 26.8 (21.0-32.0) meq/L Anion Gap 6 (5-15) meq/L BUN 17 (7-18) mg/dL Creatinine 0.66 (0.50-1.00) mg/dL Estimated GFR Greater than 89 (>89) mL/min Random Glucose 122 H (74-106) mg/dL Calcium 7.9 L (8.5-10.1) mg/dL Magnesium 1.7 (1.5-2.5) mg/dL Total Bilirubin 0.3 (0.2-1.0) mg/dL AST 204 H (15-37) U/L ALT 257 H (10-53) U/L Alkaline Phosphatase 173 H (45-117) U/L Total Protein 6.8 (6.4-8.2) g/dL Albumin 3.3 L (3.4-5.0) g/dL Urine Color (Yellw/Straw) Urine Clarity (Clear) Urine pH (5.0-8.5) Ur Specific [place] (1.002-1.035) Urine Protein (Neg-Trace) mg/dL Urine Glucose (UA) (Negative) mg/dL Urine Ketones (Negative) mg/dL Urine Occult Blood (Negative) Urine Nitrate (Negative) Urine Bilirubin (Negative) Urine Urobilinogen (Less than 2) mg/dL Ur Leukocyte Esterase (Negative) Urine RBC (0-3) /hpf Urine WBC (0-5) /hpf Ur Squamous Epith Cells (0-5) /hpf Urine Bacteria (None) /hpf Urine Mucus (Occasional) /lpf Micro UA Comment Ur Microscopic Review Urine Culture Comments Salicylates (2.8-20.0) mg/dL Urine Opiates Screen (Neg) Acetaminophen Less than 2.0 L (10.0-30.0) mcg/mL Ur Barbiturates Screen (Neg) Ur Amphetamines Screen (Neg) U Benzodiazepines Scrn (Neg) Urine Cocaine Screen (Neg) U Cannabinoids Screen (Neg) Serum Alcohol Less than 3 (0-5) mg/dL 10/08/18 10/08/18 10/08/18 Range/Units 12:00 12:00 12:00 WBC (4.0-11.0) th/mm3 RBC (4.00-5.30) mil/mm3 Hgb (11.6-15.3) gm/dL Hct (35.0-46.0) % MCV (80.0-100.0) fL MCH (27.0-34.0) pg MCHC (32.0-36.0) % RDW (11.6-17.2) % Plt Count (150-450) th/mm3 MPV (7.0-11.0) fL Neut % (Auto) (16.0-70.0) % Lymph % (Auto) (9.0-44.0) % [place] % (Auto) (0.0-8.0) % Eos % (Auto) (0.0-4.0) % Baso % (Auto) (0.0-2.0) % Neut # (Auto) (1.8-7.7) th/mm3 Lymph # (Auto) (1.0-4.8) th/mm3 [place] # (Auto) (0.0-0.9) th/mm3 Eos # (Auto) (0.0-0.4) th/mm3 Baso # (Auto) (0.0-0.2) th/mm3 WBC Differential Differential Comment PT (9.8-11.6) sec INR Ratio APTT (23.4-31.7) sec Sodium (136-145) meq/L Potassium (3.5-5.1) meq/L Chloride (98-107) meq/L Carbon Dioxide (21.0-32.0) meq/L Anion Gap (5-15) meq/L BUN (7-18) mg/dL Creatinine (0.50-1.00) mg/dL Estimated GFR (>89) mL/min Random Glucose (74-106) mg/dL Calcium (8.5-10.1) mg/dL Magnesium (1.5-2.5) mg/dL Total Bilirubin (0.2-1.0) mg/dL AST (15-37) U/L ALT (10-53) U/L Alkaline Phosphatase (45-117) U/L Total Protein (6.4-8.2) g/dL Albumin (3.4-5.0) g/dL Urine Color Yellow (Yellw/Straw) Urine Clarity Clear (Clear) Urine pH 5.0 (5.0-8.5) Ur Specific [place] 1.017 (1.002-1.035) Urine Protein Negative (Neg-Trace) mg/dL Urine Glucose (UA) Negative (Negative) mg/dL Urine Ketones Negative (Negative) mg/dL Urine Occult Blood Negative (Negative) Urine Nitrate Negative (Negative) Urine Bilirubin Negative (Negative) Urine Urobilinogen Less than 2 (Less than 2) mg/dL Ur Leukocyte Esterase Negative (Negative) Urine RBC Less than 1 (0-3) /hpf Urine WBC 1 (0-5) /hpf Ur Squamous Epith Cells <1 (0-5) /hpf Urine Bacteria Rare H (None) /hpf Urine Mucus Few H (Occasional) /lpf Micro UA Comment Culture not ind Ur Microscopic Review Not Reportable Urine Culture Comments Culture not ind Salicylates Less than 1.7 L (2.8-20.0) mg/dL Urine Opiates Screen Neg (Neg) Acetaminophen (10.0-30.0) mcg/mL Ur Barbiturates Screen Neg (Neg) Ur Amphetamines Screen Pos H (Neg) U Benzodiazepines Scrn Neg (Neg) Urine Cocaine Screen Neg (Neg) U Cannabinoids Screen Pos H (Neg) Serum Alcohol (0-5) mg/dL
[2018-10-09] MEDS ORDERED: Aluminum/Magnesium/Simethacone Susp 30 ML UDC PO PRN (10:01)
--- NOTE | 2018-10-09 11:38 | P.PNPSY ---
Telephone call from nurse coordinator from hospitalist group requesting that we discontinue the consult. She informs me that they do not restart HIV medications and do not treat HEP .
[2018-10-09] MEDS: Senna/Docusate Sodium 8.6/50 MG Tablet PO SCH (20:31)
--- NOTE | 2018-10-10 00:47 | ECG ---
Date Performed: 10/08/2018 Time Performed: 11:52:56 PTAGE: 53 years EKG: Sinus rhythm WITH SINUS ARRHYTHMIA NONSPECIFIC T-WAVE ABNORMALITY BORDERLINE ECG Since the PREVIOUS TRACING , no significant change noted DOCTOR: Aden Motnanez Interpretating Date/Time 10/11/2018 07:14:21
--- NOTE | 2018-10-10 00:54 | ECG ---
Date Performed: 10/08/2018 Time Performed: 13:59:11 PTAGE: 53 years EKG: Sinus rhythm READ QT PROLONGATION, MOST LIKELY NORMAL THOUGH ABNORMAL ECG PREVIOUS TRACING : 10/08/2018 11.52 Since the previous tracing, no significant change noted DOCTOR: Aden Montanez Interpretating Date/Time 10/10/2018 00:53:43
--- NOTE | 2018-10-10 01:06 | ECG ---
Date Performed: 10/08/2018 Time Performed: 16:46:57 PTAGE: 53 years EKG: Sinus rhythm NONSPECIFIC T-WAVE ABNORMALITY BORDERLINE ECG PREVIOUS TRACING : 10/08/2018 13.59 Since the previous tracing, no significant change noted DOCTOR: Aden Montanez Interpretating Date/Time 10/10/2018 01:05:39
[2018-10-10 09:16] LABS: Calcium 8.3 mg/dL (8.5-10.1); Carbon Dioxide 27.5 meq/L (21.0-32.0)
[2018-10-10 09:19] LABS: Chol/HDL Ratio 2.61 Ratio; HDL Cholesterol 47.5 mg/dL (40.0-60.0)
[2018-10-10] MEDS: Senna/Docusate Sodium 8.6/50 MG Tablet PO SCH ×2 (09:33→20:34)
--- NOTE | 2018-10-10 11:57 | P.HPPSY ---
Provisional Diagnosis Admission Date: October 09, 2018 10:07 Competence Certification of Person's Competence To Provide Express and Informed Consent I have personally examined Elo David, a person being served at [facility] on, October 10, 2018 1151. Express and informed consent means consent voluntarily given in writing, by a competent person, after sufficient explanation and disclosure of the subject matter involved to enable the person to make a knowing and willful decision without any element of force, fraud, deceit, duress, or other form of constraint or coercion. This person is 18 years of age or older, is not now known to be incompetent to consent to treatment with a guardian advocate, and does not have a health care surrogate or proxy currently making medical treatment decisions. I have found this person to be one of the following: [X] Competent to provide express and informed consent, as defined above, for voluntary admission to this facility and is competent to provide express and informed consent for treatment. He/she has the consistent capacity to make well reasoned, willful, and knowing decisions concerning his or her medical or mental health treatment. The person fully and consistently understands the purpose of the admission for examination/placement and is fully capable of personally exercising all rights assured [place] [] Incompetent to provide express and informed consent to voluntary admission, and this is incompetent to provide express and informed consent to treatment. The person must be transferred to involuntary status and a petition for a guardian advocate filed with the Circuit Court. [] Refusing to provide express and informed consent to voluntary admission but is competent to provide express and informed consent for treatment. The person must be discharged or transferred to involuntary status. Form shall be completed within 24 hours of a person's arrival at the receiving facility and filed in the clinical record of each person: 1. Admitted on a voluntary basis 2. Permitted to provide express and informed consent to his/her own treatment 3. Allowed to transfer from involuntary to voluntary status 4. Prior to permitting a person to consent to his or her own treatment after having been previously found incompetent to consent to treatment. History of Present Illness Capacity: Has capacity Chief Complaint: parasites History of Present Illness: Patient is a 53-year-old female with a stated history of schizophrenia and bipolar disorder and methamphetamine abuse. She is here Via Romero act after an alleged overdose on trazodone. I also suspect a component of malingering. Patient admits to me she was never suicidal and just wanted the attention of a psychiatrist. [facility]. Patient is requesting help with getting her disability. She says she was recently granted disability was had trouble acquiring the money and is asking for the help of aids social worker. She denies recent depressed mood. But her affect is quite anxious. She admits to poor compliance with her medications. If patient does have schizophrenia she has poor insight denying a history of hallucinations or psychosis. However , she has bizarre somatic delusions that she is infected parasites and her and the police are working together to infect her. At this time she denies suicidal or homicidal ideation intent or plan. Past psych: Denies inpatient history, denies history of Romero act, denies history of suicide attempts. Says she has been a patient of [facility] for the past 6 years. And sees someone named "STACI." Past medical: See chart, blood pressure has been elevated, she has HIV and hep C Past Famhx: Denies Past Social: Patient describes periodic use of methamphetamine and is likely minimizing her use. Denies other substance use besides periodic cannabis. - Inpatient Certification I certify that the inpatient services were ordered in accordance with Medicare regulations governing the order. This includes certification that hospital inpatient services are reasonable and necessary and in the case of services not specified as inpatient-only under 42 CFR 419.22(n), that they are appropriately provided as inpatient services in accordance to with the 2-midnight benchmark under 43 CFR 412.3(e) I certify that inpatient psychiatric hospital services are medically necessary. Evaluation and treatment and/or diagnostic testing are expected to improve the patient's condition. The patient needs on a daily basis, active treatment furnished directly by or requiring the supervision of inpatient psychiatric facility personnel. Estimated Total Length of Stay (Days): 8 Plans for Post Hospital Care: Not yet determined Review of Systems All other systems reviewed negative except as stated in HPI PMFSH - History History Provided By: Patient - Medical History Medical History: Medical History (Last Reviewed 10/10/18 @ 11:56 by Bhavik Foster DO) Depression HTN (hypertension) AIDS Hep C w/o coma, chronic Skin cancer - Tobacco History Second Hand Smoke Exposure: Yes Tobacco Use In Past 30 Days: Yes Smoking Status: Current every day smoker Tobacco Type: Cigarettes - Alcohol History How Often Do You Have a Drink Containing Alcohol: Unable to Obtain - Substance Use History Substance History: Active Abuse - Substance Use Type Marijuana Status: Active Route Used: Inhalation Comment: Patient reports she smokes marijuana daily. Amphetamines Status: Active Reason for Use: Increase Energy Level Comment: Patient reports she had a problem with methamphetamines in the past but has only used it once in the past year, ironically it was the day prior to being admitted to the hospital. Patient presents with pea size open sores on face and ankles.pt thinks it is parasites. It appears the patient's open wounds on her face are due to picking, likely a symptom of her methamphetamine use. - Travel History Recent Travel in the [place] Within the Last 8 Weeks: No Recent Travel Out of the Country Within the Last 8 Weeks: No - Immunization History Tetanus Immunization: >5 Years Hx Influenza Vaccine This Season: No Medications and Allergies Active Medications: Active Medications Al Hydrox/Mg Hydrox/Simethicone (Mag-Al Plus Susp Liq) 30 ml PO Q6H PRN PRN Reason: DYSPEPSIA Al Hydroxide/Mg Hydroxide (Milk Of Magnesia Liq) 30 ml PO Q12H PRN PRN Reason: Mild Constipation Ibuprofen (Motrin) 800 mg PO Q8H PRN PRN Reason: FOR PAIN 1-10 Last Admin: 10/09/18 17:51 Dose: 800 mg Lorazepam (Ativan Inj) 1 mg IM Q6H PRN PRN Reason: MODERATE TO SEVERE ANXIETY Senna/Docusate Sodium (Rosemary-Colace) 1 tab PO BID LONG Last Admin: 10/10/18 09:33 Dose: Not Given Sennosides (Senokot) 17.2 mg PO Q12H PRN PRN Reason: Moderate Constipation Sodium Chloride (Ns Flush) 2 ml IV.FLUSH PRN PRN PRN Reason: FLUSH AFTER USING IV ACCESS Allergies Allergy/AdvReac Type Severity Reaction Status Date / Time penicillin G Allergy Intermediate nauseated Verified 10/08/18 11:32 with a certain PCN unsure which one Home Medications Medication Instructions Recorded Confirmed Type okaygepp-mqdzkzkncudi-gfrczdy 1 tab PO DAILY 08/28/18 10/08/18 History [Triumeq] doxycycline hyclate 20 mg PO BID 08/28/18 08/28/18 History gabapentin 800 mg PO BID 08/28/18 10/08/18 History lurasidone [Latuda] 80 mg PO DAILY 08/28/18 10/08/18 History trazodone 200 mg PO DAILY 08/28/18 10/08/18 History Results - Labs CBC & Chem 7: 10/08/18 12:00 10/10/18 08:36 Labs: Laboratory Results - last 24 hr 10/10/18 08:36 Sodium 142 Potassium 4.0 Chloride 107 Carbon Dioxide 27.5 Anion Gap 8 BUN 18 Creatinine 0.95 Estimated GFR 61 L Random Glucose 140 H Calcium 8.3 L Triglycerides 115 Cholesterol 124 LDL Cholesterol, Calc 54 HDL Cholesterol 47.5 Cholesterol/HDL Ratio 2.61 Exam Vital signs: Vital Signs 10/09/18 20:00 10/09/18 21:00 10/10/18 05:31 Temperature 97.5 F L Pulse Rate 66 62 Respiratory Rate 18 17 Blood Pressure 134/76 151/76 H Pulse Oximetry 98 99 100 Intake & Output 10/09/18 10/10/18 10/10/18 18:59 06:59 18:59 Intake Total 360 / 360 Balance 360 / 360 Weight 51.25 kg Intake: Oral 360 / 360 Other: Weight On Admission 51.25 kg Mental Status Examination Appearance: Dirty, Disheveled Consciousness: Alert Orientation: x4 Motor Activity: Normal gait Speech: Unremarkable Language: Adequate Fund of Knowledge: Adequate Attention and Concentration: Adequate Memory: Unremarkable Affect: Anxious Thought Process & Associations: Intact Thought Content: Bizarre thinking, Delusional Hallucination Type: None Delusion Type: Bizarre, Paranoid, Other (Parasitosis) Suicidal Ideation: No Suicidal Plan: No Suicidal Intention: No Homicidal Ideation: No Homicidal Plan: No Homicidal Intention: No Insight: Poor Judgment: Poor Assessment and Plan - Assessment (1) Schizophrenia Code(s): F20.9 - Schizophrenia, unspecified Status: Acute (2) Delusional disorder Code(s): F22 - Delusional disorders Status: Acute (3) Amphetamine abuse Code(s): F15.10 - Other stimulant abuse, uncomplicated Status: Acute (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 We will restart her HIV medications. May sign voluntary Justification for Continued Inpatient Stay: Patient would decompensate in a less restrictive setting
[2018-10-10] MEDS: Gabapentin 400 MG Capsule PO SCH ×2 (13:01→20:34)
[2018-10-10] MEDS: Lurasidone 80 MG Tablet PO SCH (13:01)
[2018-10-10] MEDS: Lisinopril 10 MG Tablet PO SCH (13:01)
[2018-10-11 05:54] VITALS: BP 117/72; PULSE 63; RESP 18; TEMP 98.2; O2SAT 99
[2018-10-11 07:53] LABS: Hemoglobin A1c 5.8 % (4.3-6.0)
[2018-10-11] MEDS: Gabapentin 400 MG Capsule PO SCH (09:14)
[2018-10-11] MEDS: Lurasidone 80 MG Tablet PO SCH (09:15)
[2018-10-11] MEDS: Senna/Docusate Sodium 8.6/50 MG Tablet PO SCH (09:15)
[2018-10-11] MEDS: Lisinopril 10 MG Tablet PO SCH (09:15)
--- NOTE | 2018-10-11 11:54 | P.DSPSY ---
Psychiatry Discharge Summary Inpatient Psychiatric care?: Yes Advance Directives: No Mental Health Advance Directive: No Health Care Proxy: No - Admission Admission Date: October 09, 2018 10:07 Brief History: Patient is a 53-year-old female with a stated history of schizophrenia and bipolar disorder and methamphetamine abuse. She is here [facility] after an alleged overdose on trazodone. I also suspect a component of malingering. Patient admits to me she was never suicidal and just wanted the attention of a psychiatrist. [facility]. Patient is requesting help with getting her disability. She says she was recently granted disability was had trouble acquiring the money and is asking for the help of social work manager. She denies recent depressed mood. But her affect is quite anxious. She admits to poor compliance with her medications. If patient does have schizophrenia she has poor insight denying a history of hallucinations or psychosis. However , she has bizarre somatic delusions that she is infected parasites and her and the police are working together to infect her. At this time she denies suicidal or homicidal ideation intent or plan. Past psych: Denies inpatient history, denies history of [facility] act, denies history of suicide attempts. Says she has been a patient of [facility] for the past 6 years. And sees someone named "STACI." Past medical: See chart, blood pressure has been elevated, she has HIV and hep C Past Famhx: Denies Past Social: Patient describes periodic use of methamphetamine and is likely minimizing her use. Denies other substance use besides periodic cannabis. Tobacco Use In Past 30 Days: Yes How Often Do You Have a Drink Containing Alcohol: Unable to Obtain Hospital Course: October 11, 2018 Patient had an uneventful course in the hospital. She only has fixed somatic delusions and was primarily interested in receiving some help with her disability claims. She was reporting suicidal ideas which she does not have at present. She is quite content to have social workers help her with her disability claims. She is ready to go home as soon as she help. Clear the patient was malingering and had no knowledge of other means of obtaining help. It is not clear why this could not have been achieved on an outpatient basis. Patient was deceptive saying that she had not been using methamphetamine in a long time, but when asked when that might of been she said 2 days ago. It is possible the patient had some previous psychotic changes other than her somatic delusions but none of those symptoms are noted at present time she denies auditory or visual hallucinations. She denies suicidal or homicidal ideas. Patient is to resume home medications and follow-up at [facility]. 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 - Other stimulant use, unspecified with stimulant-induced psychotic disorder, unspecified Status: Acute Discharge Disposition: Home - Discharge Instructions Discharge Diet: Regular Diet Activities You Can Perform: Regular- No Restrictions - Discharge Time > 30 minutes Mental Status Examination Appearance: Dirty, Disheveled Consciousness: Alert Orientation: x4 Motor Activity: Normal gait Speech: Unremarkable Language: Adequate Fund of Knowledge: Adequate Attention and Concentration: Adequate Memory: Unremarkable Mood: Sad, Irritable Affect: Anxious Thought Process & Associations: Intact Thought Content: Delusional (Somatic: Believes coin shaped lesions are caused by parasite rather than her picking when high on meth) Hallucination Type: None Delusion Type: Bizarre, Somatic, Other (Parasitosis) Suicidal Ideation: No Suicidal Plan: No Suicidal Intention: No Homicidal Ideation: No Homicidal Plan: No Homicidal Intention: No Insight: Poor Judgment: Poor Discharge/Advance Care Plan Your Health Problems Are: Anxiety - Results Vital Signs: Last Vital Signs Temp 98.2 F 10/11/18 05:53 Pulse 63 10/11/18 05:53 Resp 18 10/11/18 05:53 BP 117/72 10/11/18 05:53 Pulse Ox 99 10/11/18 05:53 Lab Results: Abnormal Lab Results 10/10/18 08:36 Hemoglobin A1c 5.8 Laboratory Results Hemoglobin A1c 5.8 % (4.3-6.0) 10/10/18 08:36 Triglycerides 115 mg/dL (42-150) 10/10/18 08:36 Cholesterol 124 mg/dL (120-200) 10/10/18 08:36 LDL Cholesterol, Calc 54 mg/dL (0-99) 10/10/18 08:36 HDL Cholesterol 47.5 mg/dL (40.0-60.0) 10/10/18 08:36 Urine Culture Comments Culture not ind 10/08/18 12:00 Summary of Procedures: None Pending Results: None - Medications Number of antipsychotic medications at discharge: 0 - Discharge Care Plan Goals to Promote Your Health: * To prevent worsening of your condition and complications * To maintain your health at the optimal level Directions to Meet Your Goals: Take your medications as prescribed Follow your dietary instruction Follow activity as directed Keep your appointments as scheduled Take your immunizations and boosters as scheduled If your symptoms worsen call your PCP, if no PCP go to Urgent Care Center or Emergency Room For 11/05 questions related to your inpatient stay or results of tests pending at discharge, please contact Dr. Mitchel Loyola MD at Smoking is Dangerous to Your Health. Avoid second hand smoking
== END 2018-10-11 14:15 | disposition home or self-care (01) ==
LOC: NEPD 11:03 → NEDA 10-09 10:07 → H260 10-09 10:27
PROVIDERS: ADMIT Psychiatry & Neurology Child & Adolescent Psychiatry; ATTEND Psychiatry & Neurology Child & Adolescent Psychiatry